=== PATIENT | male | born 1975 | race Caucasian/White ===

== ENCOUNTER 2018-04-28 03:15 | Emergency (ER) | payer SELFPAY ==
[2018-04-28 03:27] VITALS: BP 153/94; PULSE 88; TEMP 98.6; BMI 30.7
[2018-04-28] MEDS ORDERED: predniSONE 20 MG TABLET (UD) PO ONE (03:32)
[2018-04-28] MEDS ORDERED: KETOROLAC TROMETHAMINE 60 MG/2 ML VIAL IM ONE (03:32)
[2018-04-28] MEDS ORDERED: predniSONE 20 MG TABLET (UD) ONE (03:47)
[2018-04-28] MEDS ORDERED: KETOROLAC TROMETHAMINE 60 MG/2 ML VIAL ONE (03:47)
--- NOTE | 2018-04-28 04:02 | PDOC ---
History of Present Illness - General Chief Complaint: Pain Stated Complaint: PAIN,RT FT Time Seen by Provider: 04/28/18 03:24 History Source: Patient Exam Limitations: No Limitations - History of Present Illness Initial Comments: 04/28/18 04:02 HISTORY OF PRESENT ILLNESS: This is a 42-year-old male past medical history of gout presents emergency Department with sudden onset 10/10 sharp right great toe pain. Patient reports patient was for dinner tonight diet high in purine rich foods. Patient reports increased pain with ambulation. Patient reports pain is similar to previous episodes of gout flares. No recent travel or sick contacts. Patient denies trauma and has not taken any pain medication prior to ER presentation. PAST MEDICAL HISTORY: Denies past medical history SURGICAL HISTORY: Denies ALLERGIES: No known drug allergies REVIEW OF SYSTEMS General/Constitutional: Denies fever or chills. Denies weakness, weight change. HEENT: Denies change in vision. Denies ear pain or discharge. Denies sore throat. Cardiovascular: Denies chest pain or shortness of breath. Respiratory: Denies cough, wheezing, or hemoptysis. Gastrointestinal: Denies nausea, vomiting, diarrhea or constipation. Denies rectal bleeding. Genitourinary: Denies dysuria, frequency, or change in urination. Musculoskeletal: Denies joint or muscle swelling or pain. Denies neck or back pain. Skin and breasts: Denies rash or easy bruising. Neurologic: Denies headache, vertigo, loss of consciousness, or loss of sensation. Psychiatric: Denies depression or anxiety. Endocrine: Denies increased thirst. Denies abnormal weight change. Hematologic/Lymphatic: Denies anemia, easy bleeding, or history of blood clots. Allergic/Immunologic: Denies hives or skin allergy. Denies latex allergy. PHYSICAL EXAM General Appearance: Well-appearing, appropriately dressed. No apparent distress , no intoxication. HEENT: EOMI, PERRLA, normal ENT inspection, normal voice, TMs normal, pharynx normal. No conjunctival pallor. No photophobia, scleral icterus. Neck: Supple. Trachea midline. No tenderness, rigidity, carotid bruit, stridor , lymphadenopathy, or thyromegaly. Respiratory/Chest: Lungs CTAB. No shortness of breath, chest tenderness, respiratory distress, accessory muscle use. No crackles, rales, rhonchi, stridor , wheezing, dullness Cardiovascular: RRR. S1, S2. No JVD, murmur, bradycardia, tachycardia. Vascular Pulses: Dorsalis-Pedis (R): 2+, Dorsalis-Pedis (L): 2+ Gastrointestinal/Abdominal: Normal bowel sounds. Abdomen soft, non-distended. No tenderness or rebound tenderness. No organomegaly, pulsatile mass, guarding, hernia, hepatomegaly, splenomegaly. Lymphatic: No adenopathy, tenderness. Musculoskeletal/Extremities: Right foot first MTP warm, tender and mildly erythematous. Full active range of motion present. Neurovascular intact. No tophi noted. Integumentary: Appropriate color, dry, warm. No cyanosis, erythema, jaundice or rash Neurologic: dean [employer] II-XII intact. Fully oriented, alert. Appropriate mood/affect. Motor strength 5/5. No appreciable EOM palsy, facial droop or sensory deficit. 04/28/18 04:03 04/28/18 04:13 Past History - Past Medical History Allergies/Adverse Reactions: Allergies Allergy/AdvReac Type Severity Reaction Status Date / Time prochlorperazine edisylate Allergy Unknown Verified 04/28/18 03:25 [From Compazine] prochlorperazine maleate Allergy Unknown Verified 04/28/18 03:25 [From [employer]] Home Medications: Ambulatory Orders No Home Medications 1 ea ONCE 07/10/11 Colchicine 0.6 mg PO BID #30 tablet 04/28/18 Naproxen 500 mg PO BID #20 tablet 04/28/18 - Suicide/Smoking/Psychosocial Hx Smoking Status: Yes Smoking History: Current some day smoker Number of Cigarettes Smoked Daily: 2 Information on smoking cessation initiated: No Hx Alcohol Use: No Drug/Substance Use Hx: No *Physical Exam - Vital Signs Last Vital Signs Temp Pulse Resp BP Pulse Ox 98.6 F 88 20 153/94 98 04/28/18 03:25 04/28/18 03:25 04/28/18 03:25 04/28/18 03:25 04/28/18 03:25 Moderate Sedation - Procedure Monitoring Vital Signs: Procedure Monitoring Vital Signs Temperature 98.6 F 04/28/18 03:25 Pulse Rate 88 04/28/18 03:25 Respiratory Rate 20 04/28/18 03:25 Blood Pressure 153/94 04/28/18 03:25 O2 Sat by Pulse Oximetry (%) 98 04/28/18 03:25 ED Treatment Course - LABORATORY CBC & Chemistry Diagram: 04/28/18 04:15 04/28/18 04:15 - Medications Given in the ED: ED Medications Discontinued Medications Generic Name Dose Route Start Last Admin Trade Name Serge PRN Reason Stop Dose Admin Ketorolac Tromethamine 60 mg 04/28/18 03:32 04/28/18 03:52 Toradol Injection - IM 04/28/18 03:33 60 mg ONCE ONE Administration Prednisone 40 mg 04/28/18 03:32 04/28/18 03:52 Deltasone - PO 04/28/18 03:33 40 mg ONCE ONE Administration Medical Decision Making - Medical Decision Making 04/28/18 04:13 A/P: 42-year-old male with gout flare Labs including uric acid X-ray of the foot Toradol 60 mg IM now Prednisone 40 mg orally now Colchicine 0.6 mg orally now Reassess 04/28/18 05:12 Patient's pain is currently 6/10. Uric acid elevated at 8.3. WBC of 14,700 without shift. Most likely reactive due to inflammation from gout. X-rays as read by me: No fractures or dislocations present. Soft tissue swelling present medially to the MTP joint. I will discharge patient home with prescription for colchicine and Naprosyn. We' ll give referral to [facility] internal medicine group. I discussed the physical exam findings, ancillary test results and final diagnoses with the patient. I answered all of the patient's questions. The patient was satisfied with the care received and felt comfortable with the discharge plan and treatment plan. The patient will call their primary care physician within 24 hours to arrange follow-up and will return to the Emergency Department with any new, persistent or worsening symptoms. 04/28/18 05:21 05/01/18 12:02 *DC/Admit/Observation/Transfer Diagnosis at time of Disposition: Gout flare Qualifiers: Gout site: toe Gout etiology: unspecified cause Laterality: right Qualified Code(s): M10.9 - Gout, unspecified - Discharge Dispostion Disposition: HOME Condition at time of disposition: Stable Decision to Admit order: No - Prescriptions Prescriptions: Colchicine 0.6 mg PO BID #30 tablet Naproxen 500 mg PO BID #20 tablet - Referrals Referrals: [facility] [place] [facility] [place] [Provider Group] - Patient Instructions Printed Discharge Instructions: DI for Gout - Post Discharge Activity Forms/Work/School Notes: Back to Work
[2018-04-28] MEDS ORDERED: COLCHICINE 0.6 MG CAP PO ONE (04:12)
[2018-04-28] MEDS ORDERED: COLCHICINE 0.6 MG CAP ONE (04:18)
[2018-04-28 04:48] LABS: ANION GAP 8 MMOL/L (8-16); BLOOD UREA NITROGEN 15 mg/dL (7-18); CALCIUM 9.2 mg/dL (8.5-10.1); CHLORIDE 105 mmol/L (98-107); CO2 24 mmol/L (21-32); GLUCOSE,RANDOM 114 mg/dL (74-106); SODIUM 136 mmol/L (136-145); URIC ACID 8.3 mg/dL (2.6-7.2)
[2018-04-28 05:16] LABS: BASO % 0.9 % (0-2.0); EOS % 0.4 % (0-4.5); HEMATOCRIT 42.1 % (35.4-49); HEMOGLOBIN 15.1 GM/dL (11.7-16.9); LYMPH % 15.2 % (8-40); MCH 31.5 pg (25.7-33.7); MCHC 35.8 g/dl (32.0-35.9); MEAN CELL VOLUME 88.1 fl (80-96); MEAN PLT VOLUME 8.6 fl (7.5-11.1); MONO % 6.2 % (3.8-10.2); NEUT % 77.3 % (42.8-82.8); PLATELET COUNT 257 K/MM3 (134-434); RBC 4.77 M/mm3 (4.00-5.60); RDW 12.6 % (11.9-15.9); WHITE BLOOD COUNT 14.7 K/mm3 (4.0-10.0)
== END 2018-04-28 05:30 | disposition home or self-care (01) ==
LOC: JER 03:15
PROC: 3E0233Z Introduction of Anti-inflammatory into Muscle, Percutaneous Approach (ICD-10-PCS; principal; 2018-04-28)
DX: M10.9 Gout, unspecified (principal)
CPT/HCPCS: 36415; 73630-TC-RT-FY; 80048; 84550; 85025; 99282-25

== ENCOUNTER 2019-08-06 13:27 | Emergency (ER) | payer SELFPAY ==
[2019-08-06 13:36] VITALS: TEMP 98.5; BMI 30.7
--- NOTE | 2019-08-06 13:39 | PDOC ---
History of Present Illness - General Chief Complaint: Chest Pain Stated Complaint: CHEST PAIN Time Seen by Provider: 08/06/19 13:37 History Source: Patient Exam Limitations: No Limitations - History of Present Illness Initial Comments: 08/06/19 14:02 43yM w PMHx obesity, current smoker, gout presenting w 3d intermittent pins/needles L chest pain lasting seconds worse w deep breaths/position, and 3wk progressive worsening persistent R testicular pain radiating up to R lumbar r egion. Taking tylenol w/o relief. Denies dysuria, fevers, n/v, cough, chest/ABD pain, diarrhea/constipation. Past History - Medical History Allergies/Adverse Reactions: Allergies Allergy/AdvReac Type Severity Reaction Status Date / Time prochlorperazine edisylate Allergy Unknown Verified 08/06/19 13:30 [From Compazine] prochlorperazine maleate Allergy Unknown Verified 08/06/19 13:30 [From Compazine] Home Medications: Ambulatory Orders Lidocaine 5% Patch [Lidoderm -] 1 patch TP DAILY #7 patch 08/06/19 COPD: No - Immunization History Immunization Up to Date: Yes - Psycho-Social/Smoking History Smoking Status: Yes Smoking History: Current every day smoker Have you smoked in the past 12 months: Yes Number of Cigarettes Smoked Daily: 20 Information on smoking cessation initiated: Yes - Substance Abuse Hx (Audit-C & DAST Scrn) How often the patient has a drink containing alcohol: Never Score: In Men: 4 or > Positive; In Women: 3 or > Positive: 0 Screen Result (Pos requires Nsg. Audit-10AR): Negative In the last yr the pt used illegal drug/Rx for NonMed reason: No Score: Yes response is considered Positive: 0 Screen Result (Positive result requires Nsg. DAST-10): Negative Review of Systems - Review of Systems Constitutional: No: Chills, Fever HEENTM: No: Eye Pain, Nose Congestion Respiratory: No: Cough, Shortness of Breath Cardiac (ROS): Yes: Chest Pain. No: Palpitations, Syncope ABD/GI: No: Abdominal Distended, Constipated, Diarrhea, Nausea, Vomiting : Yes: Pain. No: Burning, Dysuria Musculoskeletal: Yes: Back Pain. No: Joint Pain Integumentary: No: Bruising, Flushing Neurological: No: Headache, Numbness Psychiatric: No: Anxiety, Depression Endocrine: No: Intolerance to Cold, Intolerance to Heat *Physical Exam - Vital Signs Last Vital Signs Temp Pulse Resp BP Pulse Ox 98.5 F 83 18 120/68 97 08/06/19 13:31 08/06/19 16:48 08/06/19 16:48 08/06/19 16:48 08/06/19 16:48 - Physical Exam General Appearance: Yes: Nourished, Appropriately Dressed, Moderate Distress HEENT: positive: EOMI, [place], Normal Voice, Hearing Grossly Normal. negative: Scleral Icterus (R), Scleral Icterus (L) Respiratory/Chest: positive: Lungs Clear, Normal Breath Sounds. negative: Chest Tender, Respiratory Distress, Crackles, Rales, Rhonchi, Stridor, Wheezing Cardiovascular: positive: Regular Rhythm, Regular Rate, S1, S2. negative: Edema, Murmur Gastrointestinal/Abdominal: positive: Normal Bowel Sounds, Tender (R groin region), Flat, Soft. negative: Organomegaly Male Genitalia: positive: normal genitalia, testicular tenderness, other (normal cremasteric reflex, no swelling/erythema). negative: discharge, testicular mass, epididymus tender, hernia Musculoskeletal: positive: CVA Tenderness (R). negative: CVA Tenderness (L) Extremity: negative: Pedal Edema Integumentary: positive: Normal Color, Warm. negative: Rash Neurologic: positive: Fully Oriented, Alert, Normal Response, Responsive Heart Score/ECG Review - History History: Slightly suspicious - Electrocardiogram EKG: Normal - Age Age: 45-65 - Risk Factors Risk Factors Heart Score: No Hx Hypercholesterolemia, No Hx Hypertension, No Hx Diabetes, Yes Smoking History, No Positive family hx of cardiac disease, Yes Hx Obesity Based on the list above the patient has:: 1-2 risk factors - Troponin Troponin: </= normal limit - Score Heart Score - Total: 2 ED Treatment Course - LABORATORY CBC & Chemistry Diagram: 08/06/19 15:00 08/06/19 15:01 - ADDITIONAL ORDERS Additional order review: Laboratory Results 08/06/19 08/06/19 08/06/19 15:01 15:00 15:00 Sodium 140 Potassium 3.9 Chloride 105 Carbon Dioxide 30 Anion Gap 5 L BUN 14.0 Creatinine 0.9 Est GFR (CKD-EPI)AfAm 119.13 Est GFR (CKD-EPI)NonAf 102.79 Random Glucose 78 Calcium 8.9 Total Bilirubin 0.3 AST 14 L ALT 23 Alkaline Phosphatase 56 Troponin I < 0.02 Total Protein 6.7 Albumin 3.8 Lipase 125 Urine Color Yellow Urine Appearance Clear Urine pH 5.0 Ur Specific [place] 1.056 H Urine Protein Negative Urine Glucose (UA) Negative Urine Ketones Negative Urine Blood Negative Urine Nitrite Negative Urine Bilirubin Negative Urine Urobilinogen 0.2 Ur Leukocyte Esterase Negative Urine WBC (Auto) 4.1 Urine RBC (Auto) 4.1 Urine Casts (Auto) 0.38 U Epithel Cells (Auto) 4.1 Urine Bacteria (Auto) 3.8 08/06/19 15:00 RBC 4.28 MCV 89.1 MCHC 34.6 RDW 12.9 MPV 8.3 Neutrophils % 59.0 D Lymphocytes % 30.7 D Monocytes % 7.9 Eosinophils % 1.4 D Basophils % 1.0 - RADIOLOGY Radiology Studies Ordered: Category Date Time Status ABDOMEN & PELVIS CT W/O CONTR [CT] Stat CT Scan 08/06/19 16:05 Completed CHEST PA & LAT [RAD] Stat Radiology 08/06/19 14:01 Taken SCROTUM AND CONTENTS US [US] Stat Ultrasound 08/06/19 13:48 Completed - Medications Given in the ED: ED Medications Discontinued Medications Generic Name Dose Route Start Last Admin Trade Name Freq PRN Reason Stop Dose Admin Acetaminophen 975 mg 08/06/19 13:48 08/06/19 13:55 Tylenol - PO 08/06/19 13:49 975 mg ONCE ONE Administration Sodium Chloride 1,000 mls @ 1,000 mls/hr 08/06/19 15:13 08/06/19 16:38 Normal Saline - IV 08/06/19 16:12 1,000 mls/hr ASDIR STA Administration Ketorolac Tromethamine 30 mg 08/06/19 16:07 08/06/19 16:38 Toradol Injection - IVPUSH 08/06/19 16:08 30 mg ONCE ONE Administration Medical Decision Making - Medical Decision Making 08/06/19 14:05 Scrotum US - small hydroceles, varicoceles w/o evidence of torsion or acute pathology CT A/P - no acute pathology, T6-7, 7-8 disc herniations CXR - clear lungs EKG - NSR, incomplete RBBB, HR 86, QTc 428, no ST changes --- 43yM w PMHx obesity, current smoker, gout presenting w 3d intermittent pins/needles L chest pain lasting seconds worse w deep breaths/position, and 3wk progressive worsening persistent R testicular pain radiating up to R lumbar region. Chest pain likely MSK. Low concern for ACS (HEART 2, NSR EKG, neg trop) vs PNA (clear lungs) Back/groin pain likely MSK + disc herniations. Low concern for testicular torsion (neg US) vs UTI (clean) vs kidney stone (no hematuria) vs pancreatitis (lipase wnl) Given tylenol, 1L NS, toradol, lido patch w pain relief. Pt ambulated w/o support DC home w ortho f/u, lido patches Discharge - Discharge Information Problems reviewed: Yes Clinical Impression/Diagnosis: Disc herniation Qualifiers: Spinal region: thoracic Qualified Code(s): M51.24 - Other intervertebral disc displacement, thoracic region Chest pain Qualifiers: Chest pain type: unspecified Qualified Code(s): R07.9 - Chest pain, unspecified Condition: Improved Disposition: HOME - Additional Discharge Information Prescriptions: Lidocaine 5% Patch [Lidoderm -] 1 patch TP DAILY #7 patch - Follow up/Referral Referrals: Tom Ibarra DO [Staff Physician] - - Patient Discharge Instructions Patient Printed Discharge Instructions: Herniated Disc Additional Instructions: You have disc herniations T6-7 and T7-8 Take tylenol or ibuprofen or the prescribed lidocaine patch as directed if you have pain. Apply ice to your back and move around as tolerated Please follow up with the referred orthopedic Dr Ibarra - Post Discharge Activity
[2019-08-06] MEDS ORDERED: ACETAMINOPHEN 500 MG TABLET (FP) PO ONE (13:48)
[2019-08-06] MEDS ORDERED: ACETAMINOPHEN 325 MG TABLET (FP) ONE (13:53)
[2019-08-06] MEDS ORDERED: SODIUM CHLORIDE 1,000 ML IV STA (15:13)
[2019-08-06 15:25] LABS: EOS % 1.4 % (0-4.5); HEMATOCRIT 38.1 % (35.4-49); HEMOGLOBIN 13.2 GM/dL (11.7-16.9); LYMPH % 30.7 % (8-40); MCH 30.8 pg (25.7-33.7); MCHC 34.6 g/dl (32.0-35.9); MEAN CELL VOLUME 89.1 fl (80-96); MEAN PLT VOLUME 8.3 fl (7.5-11.1); MONO % 7.9 % (3.8-10.2); PLATELET COUNT 220 K/MM3 (134-434); RBC 4.28 M/mm3 (4.00-5.60); RDW 12.9 % (11.9-15.9); WHITE BLOOD COUNT 7.2 K/mm3 (4.0-10.0)
[2019-08-06 15:33] LABS: URINE APPEARANCE CLEAR; URINE BILIRUBIN NEGATIVE (NEGATIVE); URINE COLOR YELLOW; URINE GLUCOSE (UA) NEGATIVE (NEGATIVE); URINE KETONE NEGATIVE (NEGATIVE)
[2019-08-06 15:34] LABS: EPI CELLS 4.1 /uL (0-25.1); HYALINE CASTS 0.38 /uL (0-3.1); URINE BACTERIA 3.8 /uL (0-1359); URINE LEUK ESTERASE NEGATIVE (NEGATIVE); URINE NITRITE NEGATIVE (NEGATIVE); URINE PROTEIN NEGATIVE (NEGATIVE); URINE RBC 4.1 /uL (0-23.9); URINE UROBILINOGEN 0.2 mg/dL (0.2-1.0); URINE WBC 4.1 /uL (0-25.8)
[2019-08-06 15:44] LABS: LIPASE 125 U/L (73-393)
[2019-08-06] MEDS ORDERED: morphine CARPU-JECT 4 MG/1 ML DISP.SYRIN IVPUSH ONE (15:56)
[2019-08-06 16:00] LABS: ALBUMIN 3.8 g/dl (3.4-5.0); ALK PHOS 56 U/L (45-117); ANION GAP 5 MMOL/L (8-16); BILIRUBIN,TOTAL 0.3 mg/dL (0.2-1); CALCIUM 8.9 mg/dL (8.5-10.1); CHLORIDE 105 mmol/L (98-107); CO2 30 mmol/L (21-32); CREATININE 0.9 mg/dL (0.55-1.3); GLUCOSE,RANDOM 78 mg/dL (74-106); POTASSIUM 3.9 mmol/L (3.5-5.1); SGOT/AST 14 U/L (15-37); SGPT/ALT 23 U/L (13-61); SODIUM 140 mmol/L (136-145); TOT PROT 6.7 g/dl (6.4-8.2)
--- NOTE | 2019-08-06 16:00 | PDOC ---
Attending Attestation - Resident Resident Name: YiCem - ED Attending Attestation I have performed the following: I have examined & evaluated the patient, The case was reviewed & discussed with the resident, I agree w/resident's findings & plan - HPI HPI: 08/06/19 15:55 43y/o healthy M p/w R abd/flank/groin pain for several weeks, very positional in nature and worse with ROM of RLE. today, in the setting of this pain, also developed some atypical chest pain at rest, so presents for evaluation. no h/o exertional limitations, no PE risk factors, no infectious complaints. - Physicial Exam PE: 08/06/19 16:00 vss alert, obese, lying otherwise comfortably in stretcher now s1s2 rrr, ctab abd soft/nd. + R cvat, no rash. + R groin discomfort without palpable LAD or hernia. exam without swelling/erytema or urethral discharge. no focal testicular or epididymal ttp neuro intact - Medical Decision Making 08/06/19 16:01 43y/o M with atraumatic R groin pain with exam localizing to R flank/groin pain for several weeks, ? source such as stone/UTI, ? groin strain, less likely vascular or neuro. CP atypical for acs or PE. labs, ua ekg, cxr scrotal sono unremarkable, check ctap pain control reassess Heart Score/ECG Review #1 ECG reviewed & interpreted by me at: 13:29 General ECG Interpretation: Sinus Rhythm, Normal Rate (86), Normal Intervals (qtc 428, borderline LVH), No acute ischemic changes Discharge - Discharge Information Problems reviewed: Yes Clinical Impression/Diagnosis: Atypical chest pain Groin pain Qualifiers: Laterality: right Qualified Code(s): R10.31 - Right lower quadrant pain - Follow up/Referral - Patient Discharge Instructions - Post Discharge Activity
[2019-08-06] MEDS ORDERED: KETOROLAC TROMETHAMINE 30 MG/1 ML VIAL IVPUSH ONE (16:07)
[2019-08-06] MEDS ORDERED: KETOROLAC TROMETHAMINE 30 MG/1 ML VIAL ONE (16:24)
[2019-08-06 16:49] VITALS: BP 120/68; PULSE 83
[2019-08-06] MEDS ORDERED: LIDOCAINE 5% TOPICAL PATCH TP ONE (17:23)
[2019-08-06] MEDS ORDERED: LIDOCAINE PATCH REMOVAL MC SCH (22:00)
--- NOTE | 2019-08-07 10:38 | EKG ---
Test Reason : Blood Pressure : / mmHG Vent. Rate : 086 BPM Atrial Rate : 086 BPM P-R Int : 170 ms QRS Dur : 100 ms QT Int : 358 ms P-R-T Axes : 049 -27 023 degrees QTc Int : 428 ms NORMAL SINUS RHYTHM INCOMPLETE RIGHT BUNDLE BRANCH BLOCK MODERATE VOLTAGE CRITERIA FOR LVH, MAY BE NORMAL VARIANT BORDERLINE ECG NO PREVIOUS ECGS AVAILABLE Confirmed by Too Panchal MD ([id number]) on 08/07/2019 10:37:18 AM Referred By: Confirmed By:Too Panchal MD
== END 2019-08-06 17:48 | disposition home or self-care (01) ==
LOC: JER 13:27
PROC: 3E033NZ Introduction of Analgesics, Hypnotics, Sedatives into Peripheral Vein, Percutaneous Approach (ICD-10-PCS; principal; 2019-08-06)
PROC: 3E033GC Introduction of Other Therapeutic Substance into Peripheral Vein, Percutaneous Approach (ICD-10-PCS; 2019-08-06)
PROC: 3E0337Z Introduction of Electrolytic and Water Balance Substance into Peripheral Vein, Percutaneous Approach (ICD-10-PCS; 2019-08-06)
DX: M51.24 Other intervertebral disc displacement, thoracic region (principal); R07.9 Chest pain, unspecified
CPT/HCPCS: 36415; 71046-TC-FY; 74176-TC; 76870-TC; 80053; 81003; 82550; 83690; 84484; 85025; 87086; 87491; 87591; 93005; 93010; 99285-25